=== PATIENT | female | born 1930 | race Caucasian/White ===

== ENCOUNTER 2018-08-29 10:29 | Outpatient (CLI) | payer MEDICARE | END 2018-08-29 10:30 | disposition home or self-care (01) | LOC: BICMAMMO 10:29 | PROVIDERS: ATTEND Internal Medicine | DX: Z12.31 Encounter for screening mammogram for malignant neoplasm of breast (principal); R92.1 Mammographic calcification found on diagnostic imaging of breast; Z80.3 Family history of malignant neoplasm of breast | CPT/HCPCS: 77063; 77067 ==

== ENCOUNTER 2019-08-30 08:55 | Outpatient (CLI) | payer MEDICARE ==
--- NOTE | 2019-08-30 09:41 | ULT ---
Exam: Abdominal aorta ultrasound HISTORY: Aneurysm screening TECHNIQUE: Sagittal and transverse imaging of the aorta is performed. Doppler imaging of the aorta an d iliac arteries was performed. FINDINGS: Proximal aorta measures 1.4 x 1.4 cm Mid aorta measures 1.4 x 1.4 cm Distal aorta measures 1.3 x 1.3 cm Visualized iliac arteries are patent. Visualized aorta is also patent IMPRESSION: No evidence of aneurysm.
--- NOTE | 2019-08-30 10:12 | MMO ---
Bilateral MAMMO Bilat Screen [facility]. CLINICAL HISTORY: Patient is 88 years old and is seen for screening. The patient has the following family history of breast cancer: mother, at age 40, malignant (generic) and maternal aunt, malignant (generic), x2. The patient has no personal history of cancer. The patient has a history of left Excisional Biopsy in 1985 - benign. VIEWS: The views performed were: bilateral craniocaudal with tomosynthesis; bilateral mediolateral oblique with tomosynthesis; and left mediolateral oblique. FILMS COMPARED: The present examination has been compared to prior imaging studies performed at [facility] on 05/07/2015, 08/21/2016, 08/27/2017 and 08/29/2018. This study has been interpreted with the assistance of computer-aided detection. MAMMOGRAM FINDINGS: There are scattered fibroglandular densities. There are stable benign appearing calcifications seen in both breasts. There are also vascular calcifications. There are no suspicious masses, suspicious calcifications, or new areas of architectural distortion. IMPRESSION: THERE IS NO MAMMOGRAPHIC EVIDENCE OF MALIGNANCY. A ROUTINE FOLLOW-UP MAMMOGRAM IN 1 YEAR IS RECOMMENDED. THE RESULTS OF THIS EXAM WERE SENT TO THE PATIENT. ACR BI-RADS Category 2 - Benign finding MAMMOGRAPHY NOTE: 1. A negative mammogram report should not delay a biopsy if a dominant of clinically suspicious mass is present. 2. Approximately 10% to 15% of breast cancers are not detected by mammography. 3. Adenosis and dense breasts may obscure an underlying neoplasm. Reported by: JOSE ENRIQUE ZENDEJAS MD Electonically Signed: [id number]
--- NOTE | 2019-08-30 10:54 | BD ---
DEXA BONE MINERAL DENSITY STUDY: HISTORY: Postmenopausal estrogen deficiency,Z78.0. COMPARISON: None. FINDINGS: BMD (g/cm2) T-SCORE RIGHT FEMORAL NECK 0.791 -0.5 TOTAL RIGHT HIP 0.982 0.3 LEFT FEMORAL NECK 0.759 -0.8 TOTAL LEFT HIP 1.015 0.6 WHO CLASSIFICATION: Normal. IMPRESSION: Normal bone mineral density. POS: OFF
== END 2019-08-30 08:56 | disposition home or self-care (01) ==
LOC: BICULT 08:55
PROVIDERS: ATTEND Internal Medicine
DX: Z12.31 Encounter for screening mammogram for malignant neoplasm of breast (principal); Z13.820 Encounter for screening for osteoporosis; Z78.0 Asymptomatic menopausal state; Z13.6 Encounter for screening for cardiovascular disorders; Z80.3 Family history of malignant neoplasm of breast
CPT/HCPCS: 76775; 77063; 77067; 77080

== ENCOUNTER 2020-09-02 13:12 | Outpatient (CLI) | payer MEDICARE ==
--- NOTE | 2020-09-02 14:26 | MMO ---
Bilateral MAMMO Bilat Screen [facility]. CLINICAL HISTORY: Patient is 89 years old and is seen for screening. The patient has the following family history of breast cancer: mother, at age 40, malignant (generic) and maternal aunt, malignant (generic), x2. The patient has no personal history of cancer. The patient has a history of left Excisional Biopsy in 1985 - benign. VIEWS: The views performed were: bilateral craniocaudal; bilateral craniocaudal with tomosynthesis; and bilateral mediolateral oblique with tomosynthesis. FILMS COMPARED: The present examination has been compared to prior imaging studies performed at [facility] on 08/21/2016, 08/27/2017, 08/29/2018 and 08/30/2019. This study has been interpreted with the assistance of computer-aided detection. MAMMOGRAM FINDINGS: There are scattered fibroglandular densities. There is an asymmetry seen in the upper-outer region of the right breast. In the left breast, there are no suspicious masses, calcifications or areas of architectural distortion. IMPRESSION: ASYMMETRY IN THE RIGHT BREAST REQUIRES ADDITIONAL EVALUATION. ADDITIONAL IMAGING. THE RESULTS OF THIS EXAM WERE SENT TO THE PATIENT. ACR BI-RADS Category 0 - Incomplete: Need additional imaging evaluation. [facility] will notify the patient of the need for additional imaging services. MAMMOGRAPHY NOTE: 1. A negative mammogram report should not delay a biopsy if a dominant of clinically suspicious mass is present. 2. Approximately 10% to 15% of breast cancers are not detected by mammography. 3. Adenosis and dense breasts may obscure an underlying neoplasm. Reported by: KERRY NICOLAS MD Electonically Signed: [id number]
== END 2020-09-02 13:13 | disposition home or self-care (01) ==
LOC: BICMAMMO 13:12
PROVIDERS: ATTEND Internal Medicine
DX: Z12.31 Encounter for screening mammogram for malignant neoplasm of breast (principal); Z80.3 Family history of malignant neoplasm of breast; N64.89 Other specified disorders of breast
CPT/HCPCS: 77063; 77067

== ENCOUNTER 2020-09-03 14:43 | Outpatient (CLI) | payer MEDICARE ==
--- NOTE | 2020-09-03 16:11 | MMO ---
Right Breast MAMMO Unilat Diag [facility]. CLINICAL HISTORY: Patient is 89 years old and is seen for additional evaluation requested from prior study. The patient has the following family history of breast cancer: mother, at age 40, malignant (generic) and maternal aunt, malignant (generic), x2. The patient has no personal history of cancer. The patient has a history of left Excisional Biopsy in 1985 - benign. VIEWS: The views performed were: right craniocaudal spot compression with tomosynthesis; right mediolateral oblique spot compression with tomosynthesis; and right mediolateral with tomosynthesis. FILMS COMPARED: The present examination has been compared to prior imaging studies performed at [facility] on 08/29/2018, 08/30/2019, 09/02/2020 and 09/03/2020. This study has been interpreted with the assistance of computer-aided detection. MAMMOGRAM FINDINGS: There are scattered fibroglandular densities. The questionable asymmetric density did not persist with the additional views. Pt requests 6 month follow up. IMPRESSION: FINDING IN THE RIGHT BREAST IS PROBABLY BENIGN. FOLLOW-UP IN 6 MONTHS IS RECOMMENDED. THE RESULTS OF THIS EXAM WERE SENT TO THE PATIENT. ACR BI-RADS Category 3 - Probably benign finding - short interval follow-up suggested. [facility] will notify the patient of the need for additional imaging services. MAMMOGRAPHY NOTE: 1. A negative mammogram report should not delay a biopsy if a dominant of clinically suspicious mass is present. 2. Approximately 10% to 15% of breast cancers are not detected by mammography. 3. Adenosis and dense breasts may obscure an underlying neoplasm. Reported by: NAYA MACIEL MD Electonically Signed: [id number]
--- NOTE | 2020-09-03 16:16 | ULT ---
Exam: Right breast ultrasound Limited: HISTORY: Ultrasound examination performed to evaluate for defined asymmetric density in the right breast upper aspect seen only on the MLO view. Ultrasound of the right breast with attention to the 11 to 12:00 position 6 cm from the nipple demons trates no evidence for solid or cystic mass or malignancy. The asymmetric density compressed out becoming considerably less evident on additional diagnostic [place] mographic views. In discussing this case with the patient, she indicated that she would prefer to have a six-month fol low-up study. IMPRESSION: BI-RADS Category 3 probably benign findings. Six-month follow-up right unilateral diagnostic mammogra m is recommended for further assessment.
== END 2020-09-03 14:44 | disposition home or self-care (01) ==
LOC: BICMAMMO 14:43
PROVIDERS: ATTEND Internal Medicine
DX: R92.2 Inconclusive mammogram (principal)
CPT/HCPCS: 76642; 77065; G0279

== ENCOUNTER 2021-03-10 14:48 | Outpatient (CLI) | payer MEDICARE | END 2021-03-10 14:49 | disposition home or self-care (01) | LOC: BICMAMMO 14:48 | PROVIDERS: ATTEND Internal Medicine | DX: R92.2 Inconclusive mammogram (principal) | CPT/HCPCS: 77065; G0279; 77063; 77067 ==

== ENCOUNTER 2022-03-11 13:16 | Outpatient (CLI) | payer MEDICARE | END 2022-03-11 13:17 | disposition home or self-care (01) | LOC: BICMAMMO 13:16 | PROVIDERS: ATTEND Family Medicine | DX: Z12.31 Encounter for screening mammogram for malignant neoplasm of breast (principal); Z91.89 Other specified personal risk factors, not elsewhere classified; Z80.3 Family history of malignant neoplasm of breast | CPT/HCPCS: 77063; 77067 ==

== ENCOUNTER 2022-07-01 12:35 | Outpatient (CLI) | payer MEDICARE | END 2022-07-01 12:36 | disposition home or self-care (01) | LOC: ULT 12:35 | PROVIDERS: ATTEND Family Medicine | DX: R01.1 Cardiac murmur, unspecified (principal); I08.3 Combined rheumatic disorders of mitral, aortic and tricuspid valves | CPT/HCPCS: 93306 ==